=== PATIENT | female | born 2000 | race Hispanic/Latino ===

== ENCOUNTER 2022-01-06 20:13 | Emergency (ER) | payer OTHER, SELFPAY ==
[2022-01-06 20:29] VITALS: BP 103/55; PULSE 114; RESP 18; TEMP 37.4; O2SAT 98; BMI 29.2
--- NOTE | 2022-01-06 21:18 | ED.RECABL ---
HPI - Recheck/Abnormal Lab/Rx General Chief Complaint: Recheck/Abnormal Lab/Rx Stated Complaint: rt sided facial/neck pain Time Seen by Provider: 01/06/22 21:16 Source: patient Mode of arrival: Ambulatory Limitations: no limitations History of Present Illness HPI narrative: This is a old female who comes in with complaint of swelling of her right neck that is been there for several days. She was seen on the and started on Keflex for an enlarged lymph node and [place]. She states she just transferred here with the . She has been afebrile but had some chills. She has had increasing pain and swelling of the right neck she has got a very tender which she describes as lymph node. She has some pain with movement but can move her neck and flex and extend it. She has not appreciated any hoarseness or muffled voice. She has noted that her tongue is white after starting antibiotics. She also states she was nauseated before she started anti ext biotics but that has worsened. She denies any nasal congestion. No chest pain or shortness of breath. No vomiting. She has had some loose diarrheal stools. No constipation. No dysuria urgency or frequency. She denies any medical issues otherwise. No prior surgeries. No recent immunizations or vaccinations. She has not had this problem in the past denies tobacco, alcohol or illicit. She is active in the . Related Data Previous Rx's Medication Instructions Recorded clindamycin HCl 300 mg capsule 300 mg PO Q6H #28 cap 01/06/22 nystatin 100,000 unit/mL oral 5 ml PO QID 10 Days #200 ml 01/06/22 suspension Allergies Allergy/AdvReac Type Severity Reaction Status Date / Time No Known Drug Allergies Allergy Verified 01/06/22 22:16 Review of Systems Review of Systems ROS Unobtainable: All systems reviewed & are unremarkable except as noted in HPI and below Patient History Social History Smoking Status: Never smoker Smoking Status: Never smoker alcohol intake frequency: holidays/special occasions only Substance Use Type: does not use Exam Narrative Exam Narrative: GEN: well nourished, well appearing female, alert and oriented x 3, patient appears to be in mild distress. HEENT: Atraumatic, pupils are equal round reactive to light, extraocular movements are intact, nares are clear, TMs are clear with no fluid, there is no conjunctival pallor. Patient's tongue does have white exudate which is not easily removed consistent with thrush. Throat Is clear without any exudates, erythema but does have bilateral tonsillar enlargement with midline uvula. Patient has bilateral cervical lymphadenopathy with what on palpation feels like an enlarged lymph node on the right neck, it is tender, it is hard and immobile. Patient has full range of motion with normal flexion extension and rotation. No warmth, erythema or skin changes are appreciated. HEART: Tachycardic but regular rate and rhythm without murmur, clicks, rubs. LUNGS:Lungs clear to auscultation, no wheezes, rales, crackles, chest moves symmetrically ABD:bowel sounds normal, soft, non-tender, no guarding, rebound, rigidity, no masses noted, no hepatosplenomegaly MSCL: Non-tender, full range of motion, normal gait NEURO:CN 2-12 intact, sensation normal SKIN: No rash, erythema or other symptoms. Initial Vital Signs Initial Vital Signs: Vital Signs Temperature 99.3 F 01/06/22 20:29 Pulse Rate 114 H 01/06/22 20:29 Respiratory Rate 18 01/06/22 20:29 Blood Pressure 103/55 L 01/06/22 20:29 Pulse Oximetry 98 01/06/22 20:29 Course Orders Ordered: ED Orders 01/06/22 21:36 CT soft tissue neck w con Stat 01/06/22 21:45 BMP [Basic Metabolic Panel] Stat CBC Auto Diff [Complete Blood Count AUTO DIFF] Stat Lactate (Lactic Acid) Stat 01/06/22 22:00 Blood Culture Stat 01/06/22 22:33 COVID19 -Nasal swab/Pre-Proc Stat Discontinued Medications Dexamethasone (Dexamethasone 10 Mg/Ml Vial) 10 mg PO NOW ONE Stop: 01/06/22 23:44 Last Admin: 01/06/22 23:49 Dose: 10 mg Documented by: JENS Sodium Chloride (Normal Saline 0.9%) 1,000 mls @ 1,000 mls/hr IV BOLUS ONE Stop: 01/06/22 22:34 Last Infusion: 01/06/22 23:15 Dose: 0 mls/hr Documented by: Admin: 01/06/22 22:03 Dose: 1,000 mls/hr Documented by: JENS Ampicillin Sodium/Sulbactam (Sodium 3 gm/ Sodium Chloride) 100 mls @ 100 mls/hr IV NOW ONE Stop: 01/06/22 21:38 Last Infusion: 01/06/22 23:15 Dose: 0 mls/hr Documented by: Admin: 01/06/22 22:04 Dose: 100 mls/hr Documented by: JENS Ketorolac Tromethamine (Ketorolac 30 Mg/Ml Vial) 15 mg IV NOW ONE Stop: 01/06/22 21:36 Last Admin: 01/06/22 22:04 Dose: 15 mg Documented by: JENS Ondansetron HCl (Ondansetron 4 Mg/2 Ml Inj) 4 mg IV NOW ONE Stop: 01/06/22 21:36 Last Admin: 01/06/22 22:04 Dose: 4 mg Documented by: JENS Ondansetron HCl (Ondansetron 4 Mg Odt Prepack) 1 bottle MISC SEEINSTR ONE Stop: 01/06/22 23:44 Last Admin: 01/06/22 23:49 Dose: 1 bottle Documented by: JENS Reevaluation(s) Reevaluation #1: Recheck patient is feeling improved after fluids, Zofran and Toradol. Reviewed her findings today. She is slightly tachycardic BP is soft but patient is feeling improved. She has been afebrile during her stay. Her CT shows bilateral reactive changes but no abscess or clear fluid collection. Discussed blood cultures are pending would given dose of dexamethasone, change her antibiotics and have her follow up with primary care. We discussed viral illnesses and bacterial on this is can sometimes cause lymphadenopathy if she is not improving needs to follow-up. We discussed return criteria for the ER if she has worsening for having any other such concerning signs. I did discuss if she has persistent symptoms evaluation for malignancy as well as HIV would be appropriate. Vital Signs Vital signs: Vital Signs - 8 hr 01/06/22 20:29 01/06/22 22:00 01/06/22 23:11 Temperature 99.3 F Pulse Rate 114 H 115 H 105 H Respiratory Rate 18 10 L 19 Blood Pressure 103/55 L 104/59 L Pulse Oximetry 98 98 96 01/06/22 23:14 Temperature Pulse Rate 117 H Respiratory Rate 20 Blood Pressure 97/49 L Pulse Oximetry 96 MDM - Recheck/Abnormal Lab/Rx Lab Data Result diagrams: 01/06/22 21:45 01/06/22 21:45 Labs: Lab Results 01/06/22 01/06/22 01/06/22 Range/Units 21:45 21:45 21:45 WBC 11.0 (4.5-11.0) X10^3/uL RBC 4.53 (4.0-5.2) X10^6/uL Hgb 12.1 (12.0-16.0) g/dL Hct 33.9 L (36-46) % MCV 74.9 L (80-100) fL MCH 26.7 (26-34) PG MCHC 35.7 (30-36) % RDW 13.2 (11.6-14.8) % Plt Count 379 (150-400) X10^3/uL Neut % (Auto) 65.5 (50-75) % Lymph % (Auto) 26.5 (25-40) % Slope % (Auto) 7.0 (3-14) % Eos % (Auto) 0.3 L (2-4) % Baso % (Auto) 0.7 (0-2) % Neut # (Auto) 7200 H (6629-5729) /uL Lymph # (Auto) 2900 (6648-3724) /uL Slope # (Auto) 800 (0-900) /uL Eos # (Auto) 0 (0-450) /uL Baso # (Auto) 100 (0-100) /uL Sodium 131 L (137-145) mmol/L Potassium 3.5 (3.4-5.1) mmol/L Chloride 101 (98-107) mmol/L Carbon Dioxide 21 L (22-32) mmol/L BUN 8 (7-17) mg/dL Creatinine 0.64 (0.52-1.04) mg/dL Estimated GFR > 60.0 (>60) mL/min BUN/Creatinine Ratio 12.5 (6-22) Glucose 109 H (70-100) mg/dL Lactate 0.9 (0.7-2.1) mmol/L Calcium 7.7 L (8.4-10.2) mg/dL SARS-CoV-2 (PCR) (Negative) 01/06/22 Range/Units 22:33 WBC (4.5-11.0) X10^3/uL RBC (4.0-5.2) X10^6/uL Hgb (12.0-16.0) g/dL Hct (36-46) % MCV (80-100) fL MCH (26-34) PG MCHC (30-36) % RDW (11.6-14.8) % Plt Count (150-400) X10^3/uL Neut % (Auto) (50-75) % Lymph % (Auto) (25-40) % Slope % (Auto) (3-14) % Eos % (Auto) (2-4) % Baso % (Auto) (0-2) % Neut # (Auto) (8395-8262) /uL Lymph # (Auto) (4889-8302) /uL Slope # (Auto) (0-900) /uL Eos # (Auto) (0-450) /uL Baso # (Auto) (0-100) /uL Sodium (137-145) mmol/L Potassium (3.4-5.1) mmol/L Chloride (98-107) mmol/L Carbon Dioxide (22-32) mmol/L BUN (7-17) mg/dL Creatinine (0.52-1.04) mg/dL Estimated GFR (>60) mL/min BUN/Creatinine Ratio (6-22) Glucose (70-100) mg/dL Lactate (0.7-2.1) mmol/L Calcium (8.4-10.2) mg/dL SARS-CoV-2 (PCR) Negative (Negative) Point of Care Testing Rapid Strep A Negative Imaging Data CT soft tissue neck: Radiologist's Impression: [address] [address] [address] Scan Report Signed Patient: Debra Lindsey MR#: [id number] : 2000 Acct:[id number] Age/Sex: 21 / F Date of Service: 01/06/22 Loc: ED Accession Number: [id number] ?? Procedure: CT soft tissue neck w con Ordering Provider: Rajni Baron D.O. PROCEDURE:? CT SOFT TISSUE NECK W CON ? INDICATIONS:? enlarged pain node on right neck, worsening on abx ? TECHNIQUE:? After the administration of intravenous contrast, 3.0 mm axial sections acquired from the sella to the aortic arch.? Additional oblique axial 3.0 mm sections acquired through the pharynx.? 3 mm thick coronal and sagittal reformats were generated.? For radiation dose reduction, the following was used:? automated exposure control.? ? COMPARISON:? None. ? FINDINGS:? Image quality:? Excellent.? ? Lymph nodes:? Bilateral enlarged level 1 and level 2 neck lymph nodes are noted.? Mild inflammatory changes are noted adjacent to the left level 2 enlarged lymph nodes. ? Vessels:? Visualized vasculature appears patent.? ? Neck spaces:? The oropharynx, nasopharynx, and pharynx demonstrate no mucosal lesions.? The vocal cords, false vocal cords, pyriform sinuses, epiglottis, vallecula, and tongue base all appear normal.? Extramucosal spaces appear unremarkable.? ? Glands:? The parotid and submandibular glands appear normal.? Thyroid gland is within normal limits. ? Miscellaneous:? Visualized brain and orbits appear normal.? Lung apices appear clear.? Superficial soft tissues appear normal. ? Bones:? No suspicious bony lesions.? Visualized sinuses and mastoids appear unremarkable. ? ? ? IMPRESSION:? ? 1. Bilateral level 1 and level 2 neck lymphadenopathy which could be reactive or neoplastic.? There are mild inflammatory changes adjacent to the enlarged left level 2 lymph nodes suggesting adenopathy is related to reactive/inflammatory process. ? 2. No abscess. ? ? ? Dictated by: Vero Melgar MD, PhD on 01/06/2022 at 21:54 ? ? Approved by: Vero Melgar MD, PhD on 01/06/2022 at 22:00 [facility] Narrative Medical decision making narrative: This is a 21-year-old female comes in with tachycardia, afebrile but bilateral cervical lymphadenopathy with more significantly palpable lymph node on the right that is tender, nonfluctuant and non mobile. Patient labs and imaging show reactive changes possibly bacterial versus viral infection. Patient had fluids, dose of IV antibiotics, Zofran Toradol and dose of steroids was given she has had sore throat. Patient is feeling improved. Her vitals have not completely normalized but she feels much better. Discussed return precautions, plan to change her antibiotics. She did develop what appears to be thrush after her initial antibiotics were started which is likely the cause. Nystatin was prescribed. We did discuss wide differential and if she has persistent lymphadenopathy with no improvement with antibiotics or time then she does need further evaluation. Discharge Plan Departure Patient Disposition: Home Clinical Impression: Cervical lymphadenopathy Activity Restrictions/Additional Instructions: Follow up with your physician for recheck this week. If you have persistent symptoms for a long period of time or persistently enlarged lymph nodes they may evaluate for other viruses or biopsy a lymph node if it continues to be persistently large and painful. Your labs and imaging are reassuring. Blood cultures are pending and take 48-72 hours to result. If positive we will contact you. You have bilateral enlargement of your lymph nodes but no single enlarged or inappropriate enlarged lymph node on your imaging and no signs of abscess. Stop the Keflex. Switch to the other oral antibiotic. You may take Zofran 1 tablet every 6 hours as needed for nausea. Use nystatin liquid, you can swish and spit 4 times daily x 10 days. You can start this tomorrow. Prescription sent to the [facility] pharmacy. Please return for increasing swelling of the neck, difficulty breathing, difficulty swallowing or inability to swallow liquids or your own saliva, persistent fevers, chest pain or shortness of breath, persistent vomiting or other new or concerning symptoms. Prescriptions: New nystatin 100,000 unit/mL suspension 5 ml PO QID 10 Days Qty: 200 0RF Rx Instructions: administer 1/2 of dose in each side of the mouth clindamycin HCl 300 mg capsule 300 mg PO Q6H Qty: 28 0RF Stand Alone Forms: Work Release Note
--- NOTE | 2022-01-06 21:36 | DI.CT.S_ITS ---
PROCEDURE: CT SOFT TISSUE NECK W CON INDICATIONS: enlarged pain node on right neck, worsening on abx TECHNIQUE: After the administration of intravenous contrast, 3.0 mm axial sections acquired from the sella to the aortic arch. Additional oblique axial 3.0 mm sections acquired through the pharynx. 3 mm thick coronal and sagittal reformats were generated. For radiation dose reduction, the following was used: automated exposure control. COMPARISON: None. FINDINGS: Image quality: Excellent. Lymph nodes: Bilateral enlarged level 1 and level 2 neck lymph nodes are noted. Mild inflammatory changes are noted adjacent to the left level 2 enlarged lymph nodes. Vessels: Visualized vasculature appears patent. Neck spaces: The oropharynx, nasopharynx, and pharynx demonstrate no mucosal lesions. The vocal cords, false vocal cords, pyriform sinuses, epiglottis, vallecula, and tongue base all appear normal. Extramucosal spaces appear unremarkable. Glands: The parotid and submandibular glands appear normal. Thyroid gland is within normal limits. Miscellaneous: Visualized brain and orbits appear normal. Lung apices appear clear. Superficial soft tissues appear normal. Bones: No suspicious bony lesions. Visualized sinuses and mastoids appear unremarkable. IMPRESSION: 1. Bilateral level 1 and level 2 neck lymphadenopathy which could be reactive or neoplastic. There are mild inflammatory changes adjacent to the enlarged left level 2 lymph nodes suggesting adenopathy is related to reactive/inflammatory process. 2. No abscess. Dictated by: Vero Melgar MD, PhD on 01/06/2022 at 21:54 Approved by: Vero Melgar MD, PhD on 01/06/2022 at 22:00
[2022-01-06 21:59] LABS: Basophils Absolute Auto 100 /uL (0-100); Eosinophils Absolute Auto 0 /uL (0-450); Eosinophils Percent Auto 0.3 % (2-4); Monocytes Absolute Auto 800 /uL (0-900)
[2022-01-06 22:00] VITALS: BP 104/59; PULSE 115; RESP 10; O2SAT 98
[2022-01-06 22:02] LABS: Add Manual Diff / Slide Review NO; Basophils Percent Auto 0.7 % (0-2); Hematocrit 33.9 % (36-46); Hemoglobin 12.1 g/dL (12.0-16.0); Lymphocytes Absolute Auto 2900 /uL (1100-4500); Lymphocytes Percent Auto 26.5 % (25-40); Mean Corpuscular HGB Conc 35.7 % (30-36); Mean Corpuscular Hemoglobin 26.7 PG (26-34); Mean Corpuscular Volume 74.9 fL (80-100); Neutrophils Absolute Auto 7200 /uL (1500-7000); Neutrophils Percent Auto 65.5 % (50-75); Platelet Count 379 X10^3/uL (150-400); Red Blood Cell Count 4.53 X10^6/uL (4.0-5.2); Red Cell Distribution Width 13.2 % (11.6-14.8)
[2022-01-06] MEDS: SODIUM CHLORIDE 0.9% 1,000 ML 1000 ML IV (22:03)
[2022-01-06] MEDS: AMPICILLIN/SULBACTAM 3 GM 3 GM in SODIUM CHLORIDE 0.9% 100 ML IV (22:04)
[2022-01-06] MEDS: ONDANSETRON 4 MG/2 ML INJ IV (22:04)
[2022-01-06] MEDS: KETOROLAC 30 MG/ML VIAL 15 MG IV (22:04)
[2022-01-06 22:07] LABS: BUN Creatinine Ratio 12.5 (6-22); Blood Urea Nitrogen 8 mg/dL (7-17); Calcium 7.7 mg/dL (8.4-10.2); Carbon Dioxide 21 mmol/L (22-32); Chloride 101 mmol/L (98-107); Estimated Glomerular Filt Rate > 60.0 mL/min (>60); Glucose 109 mg/dL (70-100); HEMOLYSIS < 15 (0-50); Potassium 3.5 mmol/L (3.4-5.1); Sodium 131 mmol/L (137-145)
[2022-01-06 22:13] LABS: Lactate (Lactic Acid) 0.9 mmol/L (0.7-2.1)
[2022-01-06 22:59] LABS: COVID19 -Nasal RAPID Negative (Negative)
[2022-01-06 23:11] VITALS: PULSE 105; RESP 19; O2SAT 96
[2022-01-06 23:14] VITALS: BP 97/49; PULSE 117; RESP 20; O2SAT 96
[2022-01-06] MEDS: DEXAMETHASONE 10 MG/ML VIAL PO (23:49)
[2022-01-06] MEDS: ONDANSETRON 4 MG ODT PREPACK 1 BOTTLE MISC (23:49)
--- NOTE | 2022-01-08 10:14 | PC.NURSE ---
pt called to verify prescription was sent, i called [facility] and they do have it.
== END 2022-01-07 00:01 | disposition home or self-care (01) ==
PROVIDERS: Emergency Provider Emergency Medicine
DX: R59.0 Localized enlarged lymph nodes (principal); Z20.822 Contact with and (suspected) exposure to COVID-19
CPT/HCPCS: 36415; 70491; 80048; 83605; 85025; 87040; 87635; 87880; 96365; 96375; 99284; C9803; J0295; J1100; J1885; J2405; Q9967

== ENCOUNTER 2022-07-07 12:08 | Emergency (ER) | payer OTHER, SELFPAY ==
[2022-07-07 12:11] VITALS: BP 124/57; PULSE 93; RESP 18; TEMP 36.4; O2SAT 100; BMI 28.3
[2022-07-07 12:45] LABS: COVID19 -Nasal RAPID Negative (Negative)
[2022-07-07 13:46] LABS: Monotest Negative (Negative)
[2022-07-07] MEDS: IBUPROFEN SUSP 100 MG/5 ML UDC 725 MG PO (15:01)
--- NOTE | 2022-07-07 20:38 | ED.URI ---
HPI - URI/Sore Throat <Day Uribe PA-C - Last Filed: 07/07/22 20:44> General Chief Complaint: Upper Respiratory Symptoms Stated Complaint: Throat pain, cant swallow, trouble breathing Time Seen by Provider: 07/07/22 13:26 Source: patient Mode of arrival: Ambulatory History of Present Illness HPI Narrative: 21-year-old female presents to the ED with 5 days of throat pain. Patient states that she is experiencing pain swallowing. Patient denies fever, chills, nausea, vomiting, chest pain, shortness of breath. Patient denies drooling, trismus. Patient was seen at would be yesterday, was negative for a rapid strep. However, patient is here since her symptoms are worsening. Related Data Previous Rx's Medication Instructions Recorded penicillin V potassium 500 mg 500 mg PO BID 10 days #20 tabs 07/07/22 tablet prednisone 5 mg tablets in a dose See Rx Instructions PO .COMPLEX 07/07/22 pack #21 ea Allergies Allergy/AdvReac Type Severity Reaction Status Date / Time No Known Drug Allergies Allergy Verified 07/07/22 12:18 Review of Systems <Day Uribe PA-C - Last Filed: 07/07/22 20:44> Review of Systems ROS Unobtainable: All systems reviewed & are unremarkable except as noted in HPI and below Constitutional Constitutional: Denies chills, Denies fatigue, Denies fever(s), Denies frequent falls, Denies lethargy and Denies weakness Eyes Eyes: Denies change in vision, Denies eye discharge, Denies irritation and Denies loss of vision ENT Ears, Nose, Mouth, and Throat: Denies change in voice, Denies dizziness, Denies neck pain, Reports sore throat and Denies throat swelling Cardiovascular Cardiovascular: Denies chest pain, Denies irregular heart rhythm, Denies lightheadedness, Denies palpitations, Denies dyspnea, Denies dyspnea on exertion and Denies orthopnea Respiratory Respiratory: Denies cough, Denies dyspnea, Denies dyspnea on exertion and Denies wheezing Gastrointestinal Gastrointestinal: Denies abdominal pain, Denies change in bowel habits, Denies diarrhea, Denies nausea and Denies vomiting Genitourinary Genitourinary: Denies hematuria, Denies flank pain, Denies urinary incontinence and Denies urinary urgency Musculoskeletal Musculoskeletal: Denies back pain, Denies muscle weakness, Denies neck pain, Denies numbness and Denies tingling Integumentary/Breasts Skin/Breast: Denies pruritus, Denies erythema, Denies rash and Denies wounds Neurologic Neurologic: Denies behavioral changes, Denies confusion, Denies dizziness, Denies frequent falls, Denies loss of vision, Denies numbness, Denies tingling and Denies weakness Psychiatric Psychiatric: Denies anxiety, Denies behavioral changes, Denies confusion, Denies depression, Denies homicidal ideation and Denies suicidal ideation Endocrine Endocrine: Denies fatigue, Denies flushing and Denies palpitations Hematologic/Lymphatic Hematologic/Lymphatic: Denies easy bruising Allergic/Immunologic Allergic/Immunologic: Denies urticaria, Denies throat swelling and Denies wheezing Patient History <Day Uribe PA-C - Last Filed: 07/07/22 20:44> Social History Smoking Status: Never smoker Smoking Status: Never smoker alcohol intake frequency: holidays/special occasions only Substance Use Type: does not use Exam <Day Uribe PA-C - Last Filed: 07/07/22 20:44> Narrative Exam Narrative: Const General:?cooperative, healthy appearing and comfortable [facility] Head:?normal to inspection Ears:?hearing grossly normal bilaterally Nose:?external nose normal Face and sinus:?normal facial exam and sinuses nontender Mouth:?oral mucosae normal Throat:? Tonsils Erythematous, swollen, with exudates; airway is patent. Eyes General:?appearance normal, both eyes and all related structures Neck Neck:?normal visual inspection and no lymphadenopathy noted Resp Effort & Inspection:?normal respiratory effort Auscultation:?clear to auscultation bilaterally Cardio Rate:?regular rate Rhythm:?regular rhythm Neuro General:?patient alert, patient awake and patient oriented x3 Initial Vital Signs Initial Vital Signs: Vital Signs Temperature 97.6 F 07/07/22 12:11 Pulse Rate 93 H 07/07/22 12:11 Respiratory Rate 18 07/07/22 12:11 Blood Pressure 124/57 L 07/07/22 12:11 Pulse Oximetry 100 07/07/22 12:11 Oxygen Delivery Method 07/07/22 12:11 <Pham Brady DO - Last Filed: 07/08/22 08:24> Initial Vital Signs Initial Vital Signs: Vital Signs Temperature 97.6 F 07/07/22 12:11 Pulse Rate 93 H 07/07/22 12:11 Respiratory Rate 18 07/07/22 12:11 Blood Pressure 124/57 L 07/07/22 12:11 Pulse Oximetry 100 07/07/22 12:11 Oxygen Delivery Method 07/07/22 12:11 Course <Day Uribe PA-C - Last Filed: 07/07/22 20:44> Orders Ordered: Discontinued Medications Ibuprofen (Ibuprofen 400 Mg Tablet) 800 mg PO NOW ONE Stop: 07/07/22 14:46 Last Admin: 07/07/22 15:04 Dose: Not Given Documented By: DONAVON Ibuprofen (Ibuprofen Susp 100 Mg/5 Ml Udc) 725 mg 10 mg/kg (725 mg) PO NOW ONE Stop: 07/07/22 14:58 Last Admin: 07/07/22 15:01 Dose: 725 mg Documented By: DONAVON <Pham Brady DO - Last Filed: 07/08/22 08:24> Orders Ordered: Discontinued Medications Ibuprofen (Ibuprofen 400 Mg Tablet) 800 mg PO NOW ONE Stop: 07/07/22 14:46 Last Admin: 07/07/22 15:04 Dose: Not Given Documented By: DONAVON Ibuprofen (Ibuprofen Susp 100 Mg/5 Ml Udc) 725 mg 10 mg/kg (725 mg) PO NOW ONE Stop: 07/07/22 14:58 Last Admin: 07/07/22 15:01 Dose: 725 mg Documented By: DONAVON MDM - URI/Sore Throat <Day Uribe PA-C - Last Filed: 07/07/22 20:44> Lab Data Labs: Lab Results 07/07/22 07/07/22 Range/Units 12:15 13:35 SARS-CoV-2 (PCR) Negative (Negative) Monoscreen Negative (Negative) Point of Care Testing Rapid Strep A Negative MDM Narrative Medical decision making narrative: 21-year-old female presents to the ED with 5 days of throat pain. Concern for strep pharyngitis versus viral pharyngitis versus mono versus other. Obtain strep, mono tests. Physical exam concerning for strep pharyngitis with bilateral exudates and erythematous swollen tonsils. Strep test and mono test were negative. Will send for culture. Will clinically treat for strep, prescriptions sent for penicillin, prednisone. ED return precautions were discussed with patient. Patient verbalized understanding. <Pham Brady DO - Last Filed: 07/08/22 08:24> Lab Data Labs: Lab Results 07/07/22 07/07/22 Range/Units 12:15 13:35 SARS-CoV-2 (PCR) Negative (Negative) Monoscreen Negative (Negative) Point of Care Testing Rapid Strep A Negative Discharge Plan Departure Patient Disposition: Home Clinical Impression: Pharyngitis Instructions: DI for Strep Throat Activity Restrictions/Additional Instructions: You were evaluated in the ED today for throat pain. Your strep and mono test were negative. We have sent your specimen for a culture. We will clinically treat you for strep throat, prescribed penicillin, prednisone. Please complete your medications as prescribed. Return to the ED if your symptoms worsen, you have increased throat swelling, trouble swallowing or trouble breathing. Prescriptions: New penicillin V potassium 500 mg tablet 500 mg PO BID 10 Days Qty: 20 0RF prednisone 5 mg tablets,dose pack See Rx Instructions .ROUTE .COMPLEX Qty: 21 0RF Rx Instructions: orally per package directions Referrals: ProviderKatt [Primary Care Provider] - Stand Alone Forms: Work Release Note Visit Report Forms: Patient Portal/API <Pham Brady DO - Last Filed: 07/08/22 08:24> Cosign ED Attending Virid[place] Attestation: I was immediately available in the department for consultation. Documentation has been reviewed. I agree with assessment and plan.
== END 2022-07-07 15:25 | disposition home or self-care (01) ==
PROVIDERS: Emergency Medicine; Emergency Provider Student in an Organized Health Care Education/Training Program
DX: J02.9 Acute pharyngitis, unspecified (principal); Z20.822 Contact with and (suspected) exposure to COVID-19
CPT/HCPCS: 86318; 87635; 87880; 99282; 99283; C9803